=== PATIENT | female | born 1995 | race Caucasian/White ===

== ENCOUNTER 2020-03-19 05:55 | Inpatient (IN) ==
[2020-03-19] MEDS ORDERED: Lidocaine 1% 20 ML MDV INFILT PRN (06:05)
[2020-03-19] MEDS ORDERED: Naloxone 0.4 MG/ML INJ IVP PRN (06:05)
[2020-03-19] MEDS ORDERED: Metoclopramide 10 MG/2 ML VIAL IVP PRN (06:05)
[2020-03-19] MEDS ORDERED: miSOPROStoL 25 MCG TABLET PO PRN (06:05)
[2020-03-19] MEDS ORDERED: Famotidine 20 MG/2 ML VIAL IVP PRN (06:05)
[2020-03-19] MEDS ORDERED: *HR* FentaNYL (PF) 100 MCG/2 ML VIAL IVP PRN (06:05)
[2020-03-19] MEDS ORDERED: Ringers Solution, Lactated 1,000 ML IVC SCH (06:15)
[2020-03-19 06:43] LABS: Basophils % 0.1 %; Eosinophils % 0.5 %; Hematocrit 38.2 % (35.3-44.9); Hemoglobin 12.9 g/dL (11.5-15.4); Immature Granulocytes % 0.4 % (0-4); Lymphocytes # 1.8 K/mcL (0.6-4.6); Lymphocytes % 24.8 %; Mean Corpuscular HGB Conc 33.8 g/dL (31.6-35.5); Mean Corpuscular Hemoglobin 30.4 pg (28.0-33.3); Mean Corpuscular Volume 89.9 fL (83.0-100.0); Mean Platelet Volume 11.4 fL (9.4-12.4); Monocytes # 0.4 K/mcL (0.0-1.3); Platelet Count 154 K/mcL (140-400); Red Blood Count 4.25 M/mcL (3.82-4.97); Red Cell Distribution Width 13.2 % (11.5-14.5); Segmented Neutrophils % 68.2 %; White Blood Count 7.3 K/mcL (4.3-11.1)
[2020-03-19 07:54] LABS: Amphetamine Screen,Urine Negative ng/mL (Cutoff=1000); Barbiturate Screen,Urine Negative ng/mL (Cutoff=200); Benzodiazepines Screen,Urine Negative ng/mL (Cutoff=200); Cannabinoid Screen,Urine Negative ng/mL (Cutoff = 50); Cocaine Screen,Urine Negative ng/mL (Cutoff= 300); Opiate Screen,Urine Negative ng/mL (Cutoff=300); Phencyclidine Screen,Urine Negative ng/mL (Cutoff=25)
[2020-03-19] MEDS ORDERED: Acetaminophen 325 MG TABLET PO PRN (08:28)
[2020-03-19] MEDS: Oxytocin 20 units/ LR 1000 mL 20 UNIT/1,000 ML BAG IVC SCH (12:00)
[2020-03-19] MEDS ORDERED: Ibuprofen 600 MG TABLET PO ONE (22:40)
[2020-03-20] MEDS: Oxytocin 20 units/ LR 1000 mL 20 UNIT/1,000 ML BAG IVC SCH (00:26)
[2020-03-20] MEDS ORDERED: Oxytocin 20 units/ LR 1000 mL 20 UNIT/1,000 ML BAG IVC SCH (01:15)
[2020-03-20] MEDS ORDERED: Acetaminophen 325 MG TABLET PO PRN (01:15)
[2020-03-20] MEDS ORDERED: Lanolin 7 G OINT...G. TP PRN (01:15)
[2020-03-20] MEDS ORDERED: Benzocaine/Menthol 56 GM AEROSOL SPRAY TP PRN (01:15)
[2020-03-20] MEDS ORDERED: Ibuprofen 600 MG TABLET PO PRN (01:15)
[2020-03-20] MEDS ORDERED: Measles/Mumps/Rubella Vacc 0.5 ML VIAL SQ PRN (01:15)
[2020-03-20] MEDS: *HR* HYDROcodone/Acet 5/325 mg TABLET PO PRN ×2 (01:54→11:29)
[2020-03-20] MEDS ORDERED: Prenatal Vit/FA 1 EACH TABLET PO SCH (09:00)
[2020-03-20] MEDS ORDERED: *HR* Enoxaparin 40 MG/0.4 ML SYRINGE SQ SCH (17:06)
[2020-03-20 20:39] VITALS: BP 98/57
[2020-03-21] MEDS ORDERED: *HR* Enoxaparin 40 MG/0.4 ML SYRINGE SQ SCH (06:00)
== END 2020-03-20 22:53 | disposition home or self-care (01) | DRG 806 ==
LOC: 1NENULAB 05:55 → 1NENUOBS 03-20 02:11
PROVIDERS: ADMIT Advanced Practice Midwife; ATTEND Advanced Practice Midwife

== ENCOUNTER 2021-08-17 07:59 | Inpatient (IN) ==
[2021-08-17] MEDS ORDERED: Metoclopramide 10 MG/2 ML VIAL IVP PRN (08:04)
[2021-08-17] MEDS ORDERED: *HR* Nalbuphine 10 MG/ML AMPUL IV PRN (08:04)
[2021-08-17] MEDS ORDERED: Famotidine 20 MG/2 ML VIAL IVP PRN (08:04)
[2021-08-17] MEDS ORDERED: Naloxone 0.4 MG/ML INJ IVP PRN (08:04)
[2021-08-17] MEDS ORDERED: Oxytocin 20 units/ LR 1000 mL 20 UNIT/1,000 ML BAG IVC SCH (08:15)
[2021-08-17 09:00] LABS: Basophils % 0.3 %; Eosinophils % 0.5 %; Hematocrit 38.4 % (35.3-44.9); Immature Granulocytes % 0.8 % (0-4); Lymphocytes # 1.7 K/mcL (0.6-4.6); Mean Corpuscular HGB Conc 33.9 g/dL (31.6-35.5); Mean Corpuscular Hemoglobin 30.7 pg (28.0-33.3); Mean Corpuscular Volume 90.8 fL (83.0-100.0); Mean Platelet Volume 11.5 fL (9.4-12.4); Monocytes # 0.6 K/mcL (0.0-1.3); Monocytes % 7.2 %; Neutrophils # 5.3 K/mcL (1.6-8.9); Platelet Count 141 K/mcL (140-400); Red Blood Count 4.23 M/mcL (3.82-4.97); Red Cell Distribution Width 13.8 % (11.5-14.5); Segmented Neutrophils % 69.2 %; White Blood Count 7.7 K/mcL (4.3-11.1)
[2021-08-17] MEDS: Ringers Solution, Lactated 1,000 ML IVC SCH ×2 (09:16→21:49)
[2021-08-17 09:29] LABS: Influenza A PCR Negative (Negative); Influenza B PCR Negative (Negative); Resp. Syncytial Virus PCR Negative (Negative)
[2021-08-17 09:39] LABS: SARS-CoV-2 by PCR (In House) Negative (Negative)
[2021-08-17 10:14] LABS: Amphetamine Screen,Urine Negative ng/mL (Cutoff=1000); Barbiturate Screen,Urine Negative ng/mL (Cutoff=200); Benzodiazepines Screen,Urine Negative ng/mL (Cutoff=200); Cannabinoid Screen,Urine Negative ng/mL (Cutoff = 50); Cocaine Screen,Urine Negative ng/mL (Cutoff= 300); Opiate Screen,Urine Negative ng/mL (Cutoff=300); Phencyclidine Screen,Urine Negative ng/mL (Cutoff=25)
[2021-08-17] MEDS ORDERED: Acetaminophen 325 MG TABLET PO ONE (13:20)
[2021-08-17] MEDS ORDERED: *HR* Propofol 200 MG/20 ML VIAL IVP ONE ×2 (19:55→20:07)
[2021-08-17] MEDS ORDERED: Ondansetron 4 MG/2 ML VIAL ONE (21:12)
[2021-08-17] MEDS ORDERED: EPHEDrine 50 MG/ML VIAL IVP PRN (21:22)
[2021-08-17] MEDS ORDERED: Epidural Premix (fent/bupiv) 110 ML EP ONE (21:26)
[2021-08-17] MEDS ORDERED: Epidural Premix (fent/bupiv) 110 ML EP SCH (21:30)
[2021-08-18] MEDS ORDERED: Acetaminophen 325 MG TABLET PO ONE (01:30)
[2021-08-18] MEDS ORDERED: Ibuprofen 600 MG TABLET PO ONE (03:00)
[2021-08-18] MEDS ORDERED: Lanolin 7 G OINT...G. TP PRN (03:40)
[2021-08-18] MEDS ORDERED: Ondansetron ODT 4 MG TAB.RAPDIS SL PRN (03:40)
[2021-08-18] MEDS ORDERED: Oxytocin 20 units/ LR 1000 mL 20 UNIT/1,000 ML BAG IVC SCH (03:40)
[2021-08-18] MEDS ORDERED: Benzocaine/Menthol 56 GM AEROSOL SPRAY TP PRN (03:40)
[2021-08-18] MEDS ORDERED: Ibuprofen 600 MG TABLET PO SCH (05:59)
[2021-08-18] MEDS: Acetaminophen 325 MG TABLET PO SCH ×3 (07:26→18:54)
[2021-08-18] MEDS: Prenatal Vit/FA 1 EACH TABLET PO SCH (07:27)
[2021-08-19 07:28] VITALS: BP 113/71; PULSE 80; TEMP 97.6; O2SAT 98
[2021-08-19] MEDS: Prenatal Vit/FA 1 EACH TABLET PO SCH (08:05)
== END 2021-08-19 12:13 | disposition home or self-care (01) | DRG 806 ==
LOC: 1NENULAB 07:59 → 1NENUOBS 08-18 06:33
PROVIDERS: ADMIT Advanced Practice Midwife; ATTEND Advanced Practice Midwife